=== PATIENT | male | born 1930 | race Caucasian/White ===

== ENCOUNTER → 2016-10-30 | Outpatient (CLI) | payer MEDICARE ==
[~2016-10-30] MED LIST: ALDACTONE DPS25 MG PO; ASA325 MG PO; ASCORBIC ACID500 MG PO; BACTRIM 400-801 EACH PO; BETAPACE DPS120 MG PO; HYDROCORTISONE30 GM TP; IRON325 M1 PO; LEVOTHYROXINE75 MCG PO; OXY IR DPS5 MG PO; PRAVACHOL80 MG PO; PROSCAR DPS5 MG PO; SPORTS CREAM85 GM TP; THERA1 EACH PO; TYLENOL DPS325 MG PO; VITAMIN B-121000 MCG PO; VITAMIN D31000 UNIT PO; ZESTRIL DPS2.5 MG PO
== END | disposition home or self-care (01) ==
LOC: PTH.S 10-29 14:56
DX: Z01.818 Encounter for other preprocedural examination (principal); R94.31 Abnormal electrocardiogram [ECG] [EKG]; I10 Essential (primary) hypertension